=== PATIENT | female | born 1945 ===

== ENCOUNTER 2019-01-10 13:36 | Outpatient (CLI) | payer OTHER | END 2019-01-10 13:38 | disposition home or self-care (01) | LOC: RAD 13:36 | DX: R91.8 Other nonspecific abnormal finding of lung field (principal) ==

== ENCOUNTER 2019-09-12 12:00 | Outpatient (CLI) | payer OTHER | END 2019-09-13 14:27 | disposition home or self-care (01) | LOC: RAD 12:00 | DX: R91.8 Other nonspecific abnormal finding of lung field (principal) ==

== ENCOUNTER 2021-10-09 11:54 | Outpatient (CLI) | payer OTHER | END 2021-10-09 12:04 | disposition home or self-care (01) | LOC: RAD 11:54 | PROVIDERS: ATTEND Internal Medicine Pulmonary Disease | DX: J42 Unspecified chronic bronchitis (principal); K63.5 Polyp of colon; Z85.528 Personal history of other malignant neoplasm of kidney; R09.82 Postnasal drip; R91.1 Solitary pulmonary nodule; J98.11 Atelectasis; R91.8 Other nonspecific abnormal finding of lung field ==